=== PATIENT | female | born 1945 | race Caucasian/White ===

== ENCOUNTER 2017-01-09 03:12 | Emergency (ER) | payer OTHER, MEDICAID ==
[~2017-01-09] VITALS: Ht 162.6 cm; Wt 70.0 kg
[~2017-01-09 03:12] MED LIST: ALBUTEROL INH; AMLO5TAB2 PO; CELE200C PO; ENOX30SY4 SQ; HYDR-3245 PO; HYDR473S47 PO; MULT-750 PO
[2017-01-09] MEDS ORDERED: LIDOCAINE 1%, 20ML INFIL ONE (04:00)
[2017-01-09] MEDS ORDERED: LIDOCAINE 1%, 20ML ONE (04:04)
[2017-01-09 05:01] VITALS: BP 179/91
== END 2017-01-09 05:34 | disposition home or self-care (01) ==
LOC: ED 05:25
DX: S61.012A Laceration without foreign body of left thumb without damage to nail, initial encounter (principal); W45.8XXA Other foreign body or object entering through skin, initial encounter; Y93.89 Activity, other specified; Y92.098 Other place in other non-institutional residence as the place of occurrence of the external cause; Y99.8 Other external cause status
CPT/HCPCS: 12001